=== PATIENT | male | born 1985 | race Caucasian/White ===

== ENCOUNTER 2018-03-07 17:27 | Emergency (ER) | payer SELFPAY ==
[2018-03-07 17:41] VITALS: BP 121/68
[2018-03-07] MEDS: PROPARACAINE HCL 0.5% OPTH OP ONE (17:59)
[2018-03-07] MEDS: OPTH IRRIGATION SOLUTION 120 ML BTL OP ONE (17:59)
--- NOTE | 2018-03-07 18:12 | ED Physician Documentation ---
Eye Problem - HISTORIAN Historian: patient - HPI Stated Complaint: EYE INJURY Chief Complaint: Eye Problems Onset: hours Associated symptoms: pain Location: right eye Severity: severe Apparent Injury: yes (luis from cigarette blew into right eye this morning. ) Context: foreign body. denies: contact lenses Where: home Further Comments: yes (32 year old male patient presents with complaint of right eye pain. States luis blew into right eye this morning when he was outside smoking. C/O pain. Patient is legally blind and deaf. Shearing Machine Feeder at bedside.) - ROS CONST: no problems MS/SKIN/LYMPH: denies: weakness, numbness, neck pain, back pain, ankle swelling , leg swelling, rash, other CVS/RESP: none EYES/ENT: none GI/: denies: nausea, vomiting NEURO: denies: headache - PAST HX Past History: other (Usher syndrome) Allergies/Adverse Reactions: Allergies Allergy/AdvReac Type Severity Reaction Status Date / Time No Known Allergies Allergy Verified 03/07/18 17:41 Home Medications: Ambulatory Orders Medication Instructions Recorded NK [NK] 03/07/18 - SOCIAL HX Smoking History: cigarettes - FAMILY HX Family History: none - VITAL SIGNS Vital Signs: Vital Signs Temp Pulse Resp BP Pulse Ox 97.6 F 100 H 18 121/68 99 03/07/18 17:38 03/07/18 17:38 03/07/18 17:38 03/07/18 17:38 03/07/18 17:38 - REVIEWED ASSESSMENTS Nursing Assessment Reviewed: Yes Vitals Reviewed: Yes Progress - Progress Progress: No opthalmic ointment available in Pharmacy. Prescription sent to pharmacy ED Results Lab/Radiology - Orders Orders: ED Orders Category Date Time Status Opth Irrigation Solution [Eye Wash Solution] Med 03/07/18 17:55 Discontinued 120 ml OP .STK-MED ONE Proparacaine HCl [Ophthaine] Med 03/07/18 17:51 Discontinued 3 drop OP NOW ONE Eye Problem Physical Exam - Physical Exam General Appearance: moderate distress Visual Acuity: other (patient is legally blind) Eyelids: nml inspection Conjunctiva and Sclera: nml inspection Corneas: fluorescein dye uptake (R) (at 3 o'clock position) Pupils: equal Skin: nml color, warm, skin intact Respiratory: no resp distress CVS: reg rate & rhythm Neuro/Psych: oriented x3, neuro intact, mood/affect nml Discharge Clincal Impression: Corneal abrasion, right Qualifiers: Encounter type: initial encounter Qualified Code(s): S05.01XA - Injury of conjunctiva and corneal abrasion without foreign body, right eye, initial encounter Referrals: Primary Doctor,No [Primary Care Provider] - 2 Days Additional Instructions: Rest Ice pack as needed for pain Tylenol or ibuprofen per package directions as needed for pain. supervisor stave finishing your prescription and start it today. Condition: Stable Disposition: 01 HOME, SELF-CARE Decision to Admit: NO Decision Time: 18:09
== END 2018-03-07 18:42 | disposition home or self-care (01) ==
LOC: ED 17:27
DX: S05.01XA Injury of conjunctiva and corneal abrasion without foreign body, right eye, initial encounter (principal); X58.XXXA Exposure to other specified factors, initial encounter; Y92.9 Unspecified place or not applicable; Y93.9 Activity, unspecified; Y99.9 Unspecified external cause status
CPT/HCPCS: 99282